=== PATIENT | male | born 1995 | race Caucasian/White ===

== ENCOUNTER 2022-09-04 17:52 | Emergency (ER) | payer OTHER ==
[~2022-09-04] VITALS: Ht 177.8 cm; Wt 74.8 kg
[2022-09-04] MEDS ORDERED: CRUTCHES XX (19:17)
== END 2022-09-04 19:33 | disposition home or self-care (01) ==
LOC: ED 17:52
DX: S70.01XA Contusion of right hip, initial encounter (principal); W50.1XXA Accidental kick by another person, initial encounter
CPT/HCPCS: 72170; 73502